=== PATIENT | male | born 1950 | race Caucasian/White ===

== ENCOUNTER 2024-10-08 21:07 | Inpatient (IN) | payer MEDICARE, OTHER ==
[~2024-10-08] VITALS: Ht 182.9 cm; Wt 93.4 kg
[2024-10-08] MEDS ORDERED: CARB200T PO (21:24)
[2024-10-08] MEDS ORDERED: QUET50TA PO (21:24)
[2024-10-08] MEDS ORDERED: RISP1TAB7 PO (21:24)
[2024-10-08] MEDS ORDERED: ASCO-375 PO (21:24)
[2024-10-08] MEDS ORDERED: ATOR20TA PO (21:24)
[2024-10-08] MEDS ORDERED: SERT50TA PO (21:24)
[2024-10-08] MEDS ORDERED: DOCU100C36 PO (21:24)
[2024-10-08] MEDS ORDERED: LEVE500T83 PO (21:24)
[2024-10-08] MEDS ORDERED: DIVA125T2 PO (21:24)
[2024-10-08] MEDS ORDERED: TOPI100T38 PO (21:24)
[2024-10-08 21:40] LABS: PLATELET COUNT (AUTO) 226 K/uL (152-348); RED BLOOD CELL COUNT(AUTO) 3.87 MIL/uL (4.06-5.63); RED CELL DISTRIBUTION WIDTH 13.6 % (12.1-16.2); WHITE BLOOD COUNT (AUTO) 4.3 K/uL (3.6-10.2)
[2024-10-08 21:45] LABS: CREATININE 0.8 mg/dL (0.6-1.3); SODIUM SERUM 142 mmol/L (136-145); UREA NITROGEN, BLOOD 23 mg/dL (7-18)
[2024-10-08 21:47] LABS: ETHANOL < 3 MG/DL (0-10)
[2024-10-08 21:51] LABS: ASPARTATE AMINOTRANSFERASE 15 U/L (15-37); TOTAL PROTEIN, SERUM 6.5 g/dL (6.4-8.2)
[2024-10-08 21:53] LABS: *BILIRUBIN,URIN NEGATIVE (NEGATIVE); *BLOOD, URINE NEGATIVE (NEGATIVE); *CLARITY,URINE CLEAR (CLEAR); *COLOR,URINE YELLOW (YELLOW); *KETONES,URINE NEGATIVE (NEGATIVE); *PROTEIN,URINE NEGATIVE (NEGATIVE); *UROBILINOGEN,URINE 0.2 E.U./dl (NORMAL); LEUKOCYTE ESTERASE ,URINE NEGATIVE (NEGATIVE); NITRITE, URINE NEGATIVE (NEGATIVE); UGLUCOSE NEGATIVE (NEGATIVE)
[2024-10-08 22:01] LABS: *AMPHETAMINE, URINE NEGATIVE (NEGATIVE); *BARBITURATE, URINE NEGATIVE (NEGATIVE); *BENZODIAZEPINE, URINE NEGATIVE (NEGATIVE); *CANNABINOID, URINE NEGATIVE (NEGATIVE); *COCCAINE, URINE NEGATIVE (NEGATIVE); *OPIATE, URINE NEGATIVE (NEGATIVE); *PHENCYCLIDINE SCREEN,URINE NEGATIVE (NEGATIVE); FENTANYL, URINE NEGATIVE (NEGATIVE)
[2024-10-08 22:10] LABS: VALPROIC ACID 23.0 ug/mL (50-100)
[2024-10-09 01:15] VITALS: BP 118/73
[2024-10-09] MEDS ORDERED: ACETAMINOPHEN 325 MG TABLET PO PRN (02:45)
[2024-10-09] MEDS ORDERED: MAG HYDROX/AL HYDROX/SIMETH 30 ML LIQUID UDC PO PRN (02:45)
[2024-10-09] MEDS ORDERED: LORAZEPAM 1 MG TABLET PO PRN (02:45)
[2024-10-09] MEDS ORDERED: TEMAZEPAM 7.5 MG CAPSULE PO PRN ×2 (02:45)
[2024-10-09] MEDS ORDERED: MAGNESIUM HYDROXIDE 30 ML LIQUID UDC PO PRN (02:45)
[2024-10-09] MEDS: BLOOD SUGAR DIAGNOSTIC 1 EACH STRIP VI ONE (03:04)
[2024-10-09] MEDS: LORAZEPAM 1 MG TABLET PO PRN (03:08)
[2024-10-09 03:12] VITALS: BP 108/66; TEMP 98.1; O2SAT 99
[2024-10-09] MEDS: TOPIRAMATE 100 MG TABLET PO SCH (08:12)
[2024-10-09] MEDS: CARBAMAZEPINE 200 MG TABLET PO SCH (08:12)
[2024-10-09] MEDS: ASCORBIC ACID 500 MG TABLET PO SCH (08:12)
[2024-10-09 08:39] LABS: GLUCOSE FASTING 100.0 mg/dL (70-115)
[2024-10-09 08:41] VITALS: BP 125/68; TEMP 98.1; O2SAT 99
[2024-10-09 16:25] VITALS: BP 131/75; TEMP 98.1; O2SAT 99
[2024-10-09 20:07] VITALS: BP 110/67; TEMP 98.1; O2SAT 97
[2024-10-09] MEDS: TRAZODONE 50 MG TABLET PO SCH (21:18)
[2024-10-09] MEDS: ATORVASTATIN 20 MG TABLET PO SCH (21:18)
[2024-10-09] MEDS: TEMAZEPAM 15 MG CAPSULE PO PRN (22:44)
[2024-10-10 08:00] VITALS: BP 106/63; TEMP 97.5; O2SAT 97
[2024-10-10 15:40] VITALS: BP 110/65; TEMP 97.9; O2SAT 99
[2024-10-10 20:00] VITALS: BP 140/76; TEMP 97.4; O2SAT 98
[2024-10-11 08:24] VITALS: BP 121/74; TEMP 97.8; O2SAT 98
[2024-10-11 16:10] VITALS: BP 109/67; TEMP 98; O2SAT 96
[2024-10-11 20:00] VITALS: BP 117/68; TEMP 98; O2SAT 98
[2024-10-11] MEDS ORDERED: TRAZODONE 50 MG TABLET PO SCH (21:00)
[2024-10-11] MEDS: TRAZODONE 100 MG TABLET PO SCH (21:30)
[2024-10-12 08:18] VITALS: BP 113/69; TEMP 98; O2SAT 96
[2024-10-12 20:00] VITALS: BP 116/73; TEMP 97.5; O2SAT 96
[2024-10-13 09:50] VITALS: BP 100/59; TEMP 98; O2SAT 98
[2024-10-13 15:39] VITALS: BP 118/66; TEMP 98; O2SAT 98
[2024-10-13 20:00] VITALS: BP 117/68; TEMP 97.7; O2SAT 96
[2024-10-14 08:28] VITALS: BP 123/70; TEMP 98; O2SAT 98
[2024-10-14 16:48] VITALS: BP 128/70; TEMP 98; O2SAT 98
[2024-10-14 20:00] VITALS: BP 118/69; TEMP 97.5; O2SAT 98
[2024-10-15 08:20] VITALS: BP 138/75; TEMP 98; O2SAT 98
[2024-10-15 16:15] VITALS: BP 122/70; TEMP 98; O2SAT 98
[2024-10-15 20:10] VITALS: BP 118/66; TEMP 98.1; O2SAT 99
[2024-10-16 08:14] VITALS: BP 148/73; TEMP 98; O2SAT 98
[2024-10-16 16:26] VITALS: BP 137/63; TEMP 98; O2SAT 98
[2024-10-16 20:09] VITALS: BP 142/66; TEMP 98.1; O2SAT 98
[2024-10-17 08:47] VITALS: BP 133/73; TEMP 97.7; O2SAT 98
[2024-10-17 15:57] VITALS: BP 111/63; TEMP 98; O2SAT 99
[2024-10-18 08:00] VITALS: BP 121/62; TEMP 98.4; O2SAT 98
[2024-10-18 15:49] VITALS: BP 121/63; TEMP 98; O2SAT 99
[2024-10-18 20:00] VITALS: BP 111/47; TEMP 97.7; O2SAT 98
[2024-10-19 07:52] VITALS: BP 136/86; TEMP 98.2; O2SAT 98
== END 2024-10-19 11:45 | DRG 885 ==
LOC: ER 21:14 → GPS 21:16
PROVIDERS: ADMIT Psychiatry & Neurology Psychiatry; ATTEND Internal Medicine
PROC: 0HPPXYZ Removal of Other Device from Skin, External Approach (ICD-10-PCS; principal; 2024-10-19)
DX: F20.9 Schizophrenia, unspecified (principal); F41.9 Anxiety disorder, unspecified; G40.909 Epilepsy, unspecified, not intractable, without status epilepticus; S01.01XD Laceration without foreign body of scalp, subsequent encounter; W19.XXXD Unspecified fall, subsequent encounter; E78.5 Hyperlipidemia, unspecified; Z79.899 Other long term (current) drug therapy; D72.821 Monocytosis (symptomatic); F32.9 Major depressive disorder, single episode, unspecified; Z91.148 Patient's other noncompliance with medication regimen for other reason; K21.00 Gastro-esophageal reflux disease with esophagitis, without bleeding; G90.9 Disorder of the autonomic nervous system, unspecified
CPT/HCPCS: 36415; 80164; 80299; 84443; 85025; A4606; A4663; G0480